=== PATIENT | female | born 1965 | race Two or more races ===

== ENCOUNTER 2024-01-23 16:58 | Emergency (ER) | payer BC, OTHER ==
[~2024-01-23] VITALS: Ht 157.5 cm; Wt 56.6 kg
[2024-01-23] MEDS ORDERED: IBUP-1986 PO (18:00)
[2024-01-23] MEDS ORDERED: ACET-1025 PO (18:00)
[2024-01-23] MEDS: acetaminophen 325mg tablet PO STA (18:09)
[2024-01-23] MEDS: ibuprofen tablet 400 MG TABLET PO STA (18:09)
[2024-01-23 18:40] VITALS: BP 130/85; PULSE 82; RESP 16; TEMP 98.7; O2SAT 98
== END 2024-01-23 18:41 | disposition home or self-care (01) ==
LOC: ER 16:58
DX: S52.502A Unspecified fracture of the lower end of left radius, initial encounter for closed fracture (principal); Z88.5 Allergy status to narcotic agent; Z79.1 Long term (current) use of non-steroidal anti-inflammatories (NSAID); W19.XXXA Unspecified fall, initial encounter; Y93.89 Activity, other specified; Y92.89 Other specified places as the place of occurrence of the external cause; Y99.8 Other external cause status
CPT/HCPCS: 29125; 73110; 99283; A4565